=== PATIENT | male | born 1945 | race Caucasian/White ===

== ENCOUNTER 2022-11-10 00:05 | Day surgery (SDC) | payer MEDICARE, OTHER, SELFPAY ==
[2022-10-05 13:28] VITALS: BMI 36.6
[2022-10-30 14:17] VITALS: BMI 36.6
[2022-11-10 07:18] VITALS: BP 133/65; PULSE 78; RESP 17; TEMP 36; O2SAT 98; BMI 36.1
[2022-11-10] MEDS: LACTATED RINGERS 1,000 ML 150 ML IV CONT (07:24)
--- NOTE | 2022-11-10 07:45 | WPDANESEPPF ---
Anes - Initial Pre Proc Eval Procedure: Operation Date: 11/10/22 08:30 Proposed Procedures p Screening Colonoscopy - Carlyle Martinez MD Date/Time: 11/10/22 07:45 Surgeon: Carlyle Martinez MD Pre Op Diagnosis: hx of colon polyps Patient Data Age: 77 Gender: M Height: 1.93 m Weight: 134.5 kg Last Vital Signs Temp 36.0 C L 11/10/22 07:18 Pulse 78 11/10/22 07:18 Resp 17 11/10/22 07:18 BP 133/65 11/10/22 07:18 Pulse Ox 98 11/10/22 07:18 O2 Del Method Room Air 11/10/22 07:18 Allergies Allergy/AdvReac Type Severity Reaction Status Date / Time No Known Allergies Allergy Verified 11/10/22 07:15 Home Medications Medication Instructions Recorded Confirmed Type clopidogrel 75 mg tablet (Plavix) 75 mg PO DAILY 05/29/19 11/10/22 History loratadine 10 mg tablet (Claritin) 10 mg PO DAILY PRN Allergy Symptoms 05/29/19 11/10/22 History apixaban 5 mg tablet (Eliquis) 5 mg PO BID 06/03/20 11/10/22 History oxaprozin 600 mg tablet 600 mg PO BID PRN back pain #30 02/28/21 11/10/22 Rx tabs allopurinol 300 mg tablet 300 mg PO DAILY #90 tabs 05/27/22 11/10/22 Rx atorvastatin 20 mg tablet 20 mg PO DAILY #90 tabs 06/09/22 11/10/22 Rx tamsulosin 0.4 mg capsule 0.4 mg PO DAILY 06/12/22 11/10/22 History gabapentin 300 mg capsule 300 mg PO BID #180 caps 09/03/22 11/10/22 Rx levothyroxine 150 mcg tablet 150 mcg PO DAILY #90 tabs 09/03/22 11/10/22 Rx dutasteride 0.5 mg capsule 0.5 mg PO DAILY 10/05/22 11/10/22 History mometasone 0.1 % topical cream 1 applic topical BID PRN FLARE-UPS 10/05/22 11/10/22 History spironolactone 25 mg tablet 25 mg PO DAILY 10/05/22 11/10/22 History furosemide 40 mg tablet 40 mg PO DAILY 10/30/22 11/10/22 History Patient hx anesthesia problems: none Family hx anesthesia problems: none Results Review: All pre-operative results and documents have been reviewed as part of the pre-operative evaluation. 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 Family History Family History Mother Hypertension, Onset Age: 93 Patient's mother is Father Acute myocardial infarction, Onset Age: 62 Other Family history of arthritis Family history of heart disease in male family member before age 55 Social History Social History (Updated 06/12/22 @ 08:46 by Nitza Potter CMA) Smoking packs per day: 2 Smoking cigarettes per day: 40.0 Years smoked: 20 Smoking pack-years: 40.00 Smoking status: Former smoker Tobacco type: cigarettes Second hand tobacco smoke exposure: No Smoking end date: 06/28/83 Alcohol intake: current Substance use: never Substance use type: does not use Lack of Transportation: No Lack of Food: Never True Current Housing: I Have Housing Concerned About Future Housing: No Difficulty Paying Gas/Electric Bills: No Difficulty Paying for Meds: No Currently Unemployed: No Education: High School Diploma/GED Difficulty w/ Childcare or Family Care: No Living arrangements: with family Spiritual care concerns: No Anes - Eval Final PreProcedure Day of Procedure 11/10/22 07:45 Patient weight: obese Heart: regular rate and rhythm Lungs: clear to auscultation and normal air movement Airway: Mallampati scale class II Neurological: alert and oriented Last oral intake: >/= 8 hours ASA classification: IV Emergent: no Anesthetic plan: proceed Anesthesia t
--- NOTE | 2022-11-10 08:23 | PM.HPGS ---
History of Present Illness History of Present Illness Consent: Risks, benefits, and alternatives have been discussed and questions answered. Patient agrees to proceed with procedure. Chief complaint: hx of colon polyps Narrative: Arturo Ayon is a 77 year old male Presents for screening colonoscopy. Patient's current weight appetite and bowel movements are normal. Patient denies abdominal pain. He has had no bleeding. Family history is significant that he had an adenomatous colon polyp removed in 2017. He gives a family history of his brother had colon cancer. Patient presents today for neoplasia screening. Review of Systems Review of Systems: Review of systems noncontributory. [facility] Past Medical History Medical History (Updated 11/10/22 @ 08:25 by Carlyle Martinez MD) Atrial fibrillation CAD (coronary artery disease) COPD (chronic obstructive pulmonary disease) CVI (common variable immunodeficiency) Hypercholesterolemia Hypothyroidism Ischemic cardiomyopathy ef 43% Obesity Pacemaker Spinal stenosis of lumbar region Unspecified asthma, uncomplicated Surgical History Surgical History (Updated 11/10/22 @ 07:50 by Jairo Amaro MD) S/P CABG (coronary artery bypass graft) Shoulder joint replacement status Family History Family History Mother Hypertension, Onset Age: 93 Patient's mother is Father Acute myocardial infarction, Onset Age: 62 Other Family history of arthritis Family history of heart disease in male family member before age 55 Social History Social History (Updated 06/12/22 @ 08:46 by Nitza Potter CMA) Smoking packs per day: 2 Smoking cigarettes per day: 40.0 Years smoked: 20 Smoking pack-years: 40.00 Smoking status: Former smoker Tobacco type: cigarettes Second hand tobacco smoke exposure: No Smoking end date: 06/28/83 Alcohol intake: current Substance use: never Substance use type: does not use Lack of Transportation: No Lack of Food: Never True Current Housing: I Have Housing Concerned About Future Housing: No Difficulty Paying Gas/Electric Bills: No Difficulty Paying for Meds: No Currently Unemployed: No Education: High School Diploma/GED Difficulty w/ Childcare or Family Care: No Living arrangements: with family Spiritual care concerns: No Meds Home Medications and Allergies Home Medications Medication Instructions Recorded Confirmed Type clopidogrel 75 mg tablet (Plavix) 75 mg PO DAILY 05/29/19 11/10/22 History loratadine 10 mg tablet (Claritin) 10 mg PO DAILY PRN Allergy Symptoms 05/29/19 11/10/22 History apixaban 5 mg tablet (Eliquis) 5 mg PO BID 06/03/20 11/10/22 History oxaprozin 600 mg tablet 600 mg PO BID PRN back pain #30 02/28/21 11/10/22 Rx tabs allopurinol 300 mg tablet 300 mg PO DAILY #90 tabs 05/27/22 11/10/22 Rx atorvastatin 20 mg tablet 20 mg PO DAILY #90 tabs 06/09/22 11/10/22 Rx tamsulosin 0.4 mg capsule 0.4 mg PO DAILY 06/12/22 11/10/22 History gabapentin 300 mg capsule 300 mg PO BID #180 caps 09/03/22 11/10/22 Rx levothyroxine 150 mcg tablet 150 mcg PO DAILY #90 tabs 09/03/22 11/10/22 Rx dutasteride 0.5 mg capsule 0.5 mg PO DAILY 10/05/22 11/10/22 History mometasone 0.1 % topical cream 1 applic topical BID PRN FLARE-UPS 10/05/22 11/10/22 History spironolactone 25 mg tablet 25 mg PO DAILY 10/05/22 11/10/22 History furosemide 40 mg tablet 40 mg PO DAILY 10/30/22 11/10/22 History Allergies Allergy/AdvReac Type Severity Reaction Status Date / Time No Known Allergies Allergy Verified 11/10/22 07:15 Vital Signs Vital Signs - 24 hr 11/10/22 07:18 Temperature 96.8 F L Pulse Rate 78 Respiratory Rate 17 Blood Pressure 133/65 Pulse Oximetry 98 Oxygen Delivery Room Air Exam Narrative: Physical exam reveals patient to be alert. Vital signs stable. HEENT exam is unremarkable. Patient is anict
[2022-11-10 08:54] VITALS: BP 116/67; PULSE 70; RESP 19; O2SAT 98
[2022-11-10 09:04] VITALS: BP 119/72; PULSE 75; RESP 23; O2SAT 97
[2022-11-10 09:14] VITALS: BP 120/80; PULSE 70; RESP 19; O2SAT 99
== END 2022-11-10 09:22 | disposition home or self-care (01) ==
PROVIDERS: PCP Internal Medicine; Visit Provider Internal Medicine Gastroenterology
PROC: 0DJD8ZZ Inspection of Lower Intestinal Tract, Via Natural or Artificial Opening Endoscopic (ICD-10-PCS; CPT 45378; principal; 2022-11-10 08:30)
DX: Z12.11 Encounter for screening for malignant neoplasm of colon (principal); K64.8 Other hemorrhoids; K57.30 Diverticulosis of large intestine without perforation or abscess without bleeding; Z86.010 Personal history of colon polyps; Z80.0 Family history of malignant neoplasm of digestive organs; I48.91 Unspecified atrial fibrillation; I25.10 Atherosclerotic heart disease of native coronary artery without angina pectoris; J44.9 Chronic obstructive pulmonary disease, unspecified; D83.9 Common variable immunodeficiency, unspecified; E78.00 Pure hypercholesterolemia, unspecified; E03.9 Hypothyroidism, unspecified; I25.5 Ischemic cardiomyopathy; Z95.0 Presence of cardiac pacemaker; Z95.1 Presence of aortocoronary bypass graft; E66.9 Obesity, unspecified; Z68.36 Body mass index [BMI] 36.0-36.9, adult; Z87.891 Personal history of nicotine dependence; Z79.02 Long term (current) use of antithrombotics/antiplatelets; Z79.01 Long term (current) use of anticoagulants
CPT/HCPCS: G0105; J2704; J7120

== ENCOUNTER 2023-08-16 11:27 | Emergency (ER) | payer MEDICARE, SELFPAY ==
--- NOTE | ~2023-08-16 | XR_ITS ---
EXAMINATION: XR hand RT min 3V INDICATION: Right hand pain and laceration TECHNIQUE: Three views of the right hand are obtained. COMPARISON: 11/04/2022 FINDINGS: Bone alignment is normal. There is no fracture. There is [id number] osteoarthritis of multiple interphalangeal joints. No radiopaque foreign body is identified. IMPRESSION: 1. No acute osseous abnormality. Reviewed, dictated and finalized at location B. STER REPAIRER
[2023-08-16 11:42] VITALS: BP 112/59; PULSE 80; RESP 18; TEMP 35.8; O2SAT 100
--- NOTE | 2023-08-16 11:43 | ED.WOUNDLAC ---
HPI - Wound/Laceration General Chief Complaint: Wound/Laceration Stated Complaint: right hand cut Time Seen by Provider: 08/16/23 11:42 Source: patient and RN notes reviewed Mode of arrival: ambulatory Limitations: no limitations History of Present Illness HPI narrative: 77-year-old male presents concern for injury to his right hand. Reports he fell on concrete and felt like his 5th digit bent all the way backwards. Reports he has a cut to the palmar aspect of the hand any 5th digit. He denies any decreased sensation, strength, range of motion in the hand or digits. He is on Plavix. He is up-to-date on his vaccination Related Data Home Medications Medication Instructions Recorded Confirmed clopidogrel 75 mg tablet (Plavix) 75 mg PO DAILY 05/29/19 08/16/23 loratadine 10 mg tablet (Claritin) 10 mg PO DAILY PRN Allergy Symptoms 05/29/19 08/16/23 apixaban 5 mg tablet (Eliquis) 5 mg PO BID 06/03/20 08/16/23 tamsulosin 0.4 mg capsule 0.4 mg PO DAILY 06/12/22 08/16/23 dutasteride 0.5 mg capsule 0.5 mg PO DAILY 10/05/22 08/16/23 mometasone 0.1 % topical cream 1 applic topical BID PRN FLARE-UPS 10/05/22 08/16/23 spironolactone 25 mg tablet 25 mg PO DAILY 10/05/22 08/16/23 furosemide 40 mg tablet 80 mg PO BID 06/14/23 08/16/23 metoprolol succinate 50 mg 50 mg PO DAILY 06/14/23 08/16/23 tablet,extended release 24 hr Allergies Allergy/AdvReac Type Severity Reaction Status Date / Time No Known Allergies Allergy Verified 08/16/23 11:51 Review of Systems Review of Systems: CONSTITUTIONAL: Denies malaise, chills, sweats, or fever. SKIN: Reports laceration to the right hand MUSCULOSKELETAL: Reports right hand pain NEUROLOGIC: Denies numbness, weakness All systems reviewed & are unremarkable except as noted in HPI and below PMFSH Past Medical History Medical History Atrial fibrillation CAD (coronary artery disease) COPD (chronic obstructive pulmonary disease) CVI (common variable immunodeficiency) Hypercholesterolemia Hypothyroidism Ischemic cardiomyopathy ef 43% Obesity Pacemaker Spinal stenosis of lumbar region Unspecified asthma, uncomplicated Surgical History Surgical History S/P CABG (coronary artery bypass graft) Shoulder joint replacement status Family History Family History Mother Hypertension, Onset Age: 93 Patient's mother is Father Acute myocardial infarction, Onset Age: 62 Other Family history of arthritis Family history of heart disease in male family member before age 55 Social History Social History Smoking packs per day: 2 Smoking cigarettes per day: 40.0 Years smoked: 20 Smoking pack-years: 40.00 Smoking status: Former smoker Tobacco type: cigarettes Second hand tobacco smoke exposure: No Smoking end date: 06/28/83 Alcohol intake: current Substance use: never Substance use type: does not use Lack of Transportation: No Lack of Food: Never True Current Housing: I Have Housing Concerned About Future Housing: No Difficulty Paying Gas/Electric Bills: No Difficulty Paying for Meds: No Currently Unemployed: No Education: High School Diploma/GED Difficulty w/ Childcare or Family Care: No Living arrangements: with family Spiritual care concerns: No Comments At time of signature, agree with nursing past medical, surgical, social and family history. There is no relevant family history pertinent to the presenting complaint Exam Narrative: GENERAL: Well-appearing, well-nourished, and in no acute distress. HEAD: Normocephalic EYES: PERRLA, conjunctivae clear NECK: Supple. CHEST: Speaks in full sentences. No respiratory distress. HEART: Regular rate and rhythm. Normal and equal peripheral pulse
[2023-08-16] MEDS: TETANUS,DIPHTHERIA,AC PERTUSSIS ADULT (0.5 ML) BOOSTRIX IM (12:49)
== END 2023-08-16 13:05 | disposition home or self-care (01) ==
PROVIDERS: Emergency Provider Nurse Practitioner; PCP Internal Medicine
DX: S61.411A Laceration without foreign body of right hand, initial encounter (principal); W19.XXXA Unspecified fall, initial encounter; Z23 Encounter for immunization; Z87.891 Personal history of nicotine dependence; I48.91 Unspecified atrial fibrillation; I25.10 Atherosclerotic heart disease of native coronary artery without angina pectoris; J44.9 Chronic obstructive pulmonary disease, unspecified; D83.9 Common variable immunodeficiency, unspecified; E78.00 Pure hypercholesterolemia, unspecified; E03.9 Hypothyroidism, unspecified; Z95.0 Presence of cardiac pacemaker; E66.9 Obesity, unspecified; Z68.36 Body mass index [BMI] 36.0-36.9, adult; M48.061 Spinal stenosis, lumbar region without neurogenic claudication; Z95.1 Presence of aortocoronary bypass graft; Z79.01 Long term (current) use of anticoagulants
CPT/HCPCS: 12002; 73130; 90471; 90715; 99213; G0463

== ENCOUNTER 2024-05-10 15:46 | Outpatient (CLI) | payer MEDICARE, SELFPAY ==
--- NOTE | ~2024-05-10 | XR_ITS ---
CHEST RADIOGRAPH, PA AND LATERAL CLINICAL HISTORY: Chronic cough . COMPARISON: 04/13/2014 TECHNIQUE: PA and lateral views of the chest. FINDINGS Sternal wires and mediastinal clips are identified, the wires are midline and intact. Loop recorder projects to the left of midline. The left mid lung is partially obscured due to AICD generator. Wires project over the right atrium, coronary sinus and right ventricle. The remainder of the cardiomediastinal silhouette is otherwise unremarkable. The lungs are clear. Visualized osseous structures and soft tissues are unremarkable. IMPRESSION: No focal infiltrate or effusion. Reviewed, dictated and finalized at location A. [employer]K SUPPORT ENGINEER
== END 2024-05-10 15:47 | disposition home or self-care (01) ==
LOC: MICIMG 15:49
PROVIDERS: PCP Nurse Practitioner Family; Visit Provider Nurse Practitioner Family
DX: R05.3 Chronic cough (principal)
CPT/HCPCS: 71046